=== PATIENT | female | born 1955 | race Caucasian/White ===

== ENCOUNTER → 2018-11-07 | Outpatient (CLI) | payer OTHER | LOC: M.RAD 10:30 | DX: Z12.31 Encounter for screening mammogram for malignant neoplasm of breast (principal) ==

== ENCOUNTER → 2019-09-14 | Outpatient (CLI) | payer OTHER ==
[2019-09-14 09:57] LABS: CHOLESTEROL 213 mg/dL (<200); HDL CHOLESTEROL 88 mg/dL (>40); LDL CHOLESTEROL 112 mg/dL (<100); SERUM ASSESSMENT Clear; TC:HDL 2.4 Ratio (Not establshd); TRIGLYCERIDE 67 mg/dL (<150); VLDL 13 mg/dL (<40)
== END ==
LOC: M.LAB 09:11
PROVIDERS: ATTEND Internal Medicine Cardiovascular Disease
DX: E78.2 Mixed hyperlipidemia (principal)

== ENCOUNTER → 2019-11-20 | Outpatient (CLI) | payer OTHER | LOC: M.RAD 10:44 | PROVIDERS: ATTEND Family Medicine | DX: Z12.31 Encounter for screening mammogram for malignant neoplasm of breast (principal) ==

== ENCOUNTER → 2020-03-17 | Outpatient (CLI) | payer OTHER ==
[2020-03-17 11:43] LABS: CHOLESTEROL 200 mg/dL (<200); HDL CHOLESTEROL 86 mg/dL (>40); LDL CHOLESTEROL 97 mg/dL (<100); TC:HDL 2.3 Ratio (Not establshd); TRIGLYCERIDE 89 mg/dL (<150); VLDL 18 mg/dL (<40)
[2020-03-17 11:44] LABS: SERUM ASSESSMENT Clear
== END ==
LOC: M.LAB 11:05
PROVIDERS: ATTEND Internal Medicine Cardiovascular Disease
DX: E78.2 Mixed hyperlipidemia (principal)

== ENCOUNTER → 2020-03-26 | Outpatient (CLI) | payer OTHER | LOC: M.CT 10:39 | PROVIDERS: ATTEND Internal Medicine Cardiovascular Disease | DX: Z13.6 Encounter for screening for cardiovascular disorders (principal) ==

== ENCOUNTER → 2020-08-21 | Outpatient (CLI) | payer OTHER | LOC: M.ULTRA 11:17 | PROVIDERS: ATTEND Family Medicine | DX: E04.9 Nontoxic goiter, unspecified (principal) ==

== ENCOUNTER → 2020-11-19 | Outpatient (CLI) | payer OTHER | LOC: M.OGMEDXR 10:53 | PROVIDERS: ATTEND Family Medicine | DX: Z12.31 Encounter for screening mammogram for malignant neoplasm of breast (principal) ==